=== PATIENT | male | born 1940 | race Caucasian/White ===

== ENCOUNTER 2018-05-13 02:48 | Emergency (ER) | payer OTHER, BC ==
[~2018-05-13] VITALS: Ht 177.8 cm; Wt 83.9 kg
[~2018-05-13 02:48] MED LIST: ASPIRIN81 M2; B-100 COMPLEX1 EAC1; CLOBETASOL PROP50 M1; CRESTOR10 MG; DILANTIN100 MG; ECONAZOLE NITRAT5 GM; FLOMAX0.4 MG; FOLIC ACID1 MG; GINKGO60 MG; GLUCOPHAGE XR750 MG; SAW PALMETTO80 MG; VENTOLIN HFA 1818 GM; VITAMIN B122500 MCG; VITAMIN D3400 UNIT; VITAMIN E400 UNIT
[2018-05-13] MEDS ORDERED: TRAMADOL 50 MG50 MG PO (03:57)
[2018-05-13 04:35] VITALS: BP 137/73
== END 2018-05-13 04:36 | disposition home or self-care (01) ==
LOC: ER 02:48
DX: S30.0XXA Contusion of lower back and pelvis, initial encounter (principal); Z86.011 Personal history of benign neoplasm of the brain; Z87.442 Personal history of urinary calculi; Z90.49 Acquired absence of other specified parts of digestive tract; Z85.89 Personal history of malignant neoplasm of other organs and systems; Z91.018 Allergy to other foods; W01.0XXA Fall on same level from slipping, tripping and stumbling without subsequent striking against object, initial encounter; Y93.89 Activity, other specified; Y92.090 Kitchen in other non-institutional residence as the place of occurrence of the external cause; Y99.8 Other external cause status